=== PATIENT | female | born 1960 | race Caucasian/White ===

== ENCOUNTER 2017-04-15 00:36 | Inpatient (IN) | payer MEDICAID ==
--- NOTE | 2017-04-15 00:56 | ED Physician Chart ---
ED Chief Complaint/HPI - Patient Information Date Seen:: 04/15/17 Time Seen:: 00:40 Chief Complaint:: chest pain History of Present Illness:: patient awoke from sleep 1 hr ago with sharp pleuritic left sided chest pain with radiation down her left arm. Pain 10 on a scale of 1 to 10. For the last month has been getting episodes of similar pain which last only a few seconds. Episodes would occur spontaneously without precipitating or relieving factors. No recent URI or cough. ED Review of Systems - Review of Systems General/Constitutional: No fever, No chills Skin: No skin lesions Head: No headache Eyes: No loss of vision ENT: No earache Neck: No neck pain, No swelling Cardio Vascular: Chest pain Pulmonary: No SOB GI: No nausea, No vomiting G/U: No dysuria Musculoskeletal: No bone or joint pain, No muscle pain Endocrine: No polydipsia Psychiatric: No prior psych history, No depression, No anxiety Hematopoietic: No bruising, No lymphadenopathy Allergic/Immuno: No urticaria Neurological: No syncope ED Past Medical History - Past Medical History Past Medical History: DM Family History: Heart disease, Diabetes [place] Social History: Smoker, No Alcohol, Other (smokes 4 cigarets per day) Surgical History: None ED Labs/Radiology/EKG Results - Radiology Results Results: CXR: right basilar infiltrate - EKG Interpretations Rate & Rhythm: NSR with a rate of 55 [place]: normal Comments:: inverted T waves anterior leads; [facility] ED Assessment - Assessment General Assessment: Patient when asked again said that she has slight cough 3 days ago. It is very difficult to diagnose pneumonia without a significant cough but patient's chest pain does not appear cardiac in origin. Patient had 3 EKGs all of which was the same and showed inverted T waves in anterior leads. ED Septic Shock - . Is Septic Shock (SBP<90, OR Lactate>4 mmol\L) present?: No ED Reassessment (Disposition) - Reassessment Reassessment Condition:: Improved - Diagnosis Diagnosis:: Chest pain; pneumonia; hypokalemia - Patient Disposition Admitted to:: Telemetry Spoke to:: Pal Patel Admitting Medical Physician:: Pal Patel Condition at Disposition:: Stable, Improved
[2017-04-15 01:03] LABS: HEMATOCRIT 39.1 % (41.0-60); HEMOGLOBIN 13.1 gm/dL (12-16); MEAN CELL VOLUME 90.6 fl (81-100); MEAN CORPUSCULAR HEMOGLOBIN 30.2 pg (27.0-31.0); MEAN CORPUSCULAR HGB CONC 33.4 pg (28.0-36.0); PLATELET COUNT 300 Th/cmm (150-400); RED BLOOD COUNT 4.32 Mil/cmm (3.80-5.10); RED CELL DISTRIBUTION WIDTH 12.7 % (11.5-20.0)
[2017-04-15] MEDS ORDERED: Sodium Chloride 0.9% 500 ML IV ONE ×2 (01:14→01:41)
[2017-04-15] MEDS ORDERED: cefTRIAXone 1 GM in Sodium Chloride 0.9% 50 ML IV ONE (01:22)
[2017-04-15 01:28] LABS: ANION GAP 8.9 (7.0-16.0); BUN - UREA NITROGEN 9 mg/dL (7-25); CALCIUM SERUM 9.4 mg/dL (8.6-10.3); CARBON DIOXIDE 27.2 mEq/L (21.0-31.0); CHLORIDE 102 mEq/L (98-107); CREATININE - SERUM 0.5 mg/dL (0.6-1.2); GLUCOSE 139 mg/dL (70-105); MAGNESIUM 2.4 mg/dL (1.9-2.7); POTASSIUM SERUM 3.1 mEq/L (3.5-5.1); SODIUM SERUM 135 mEq/L (136-145)
[2017-04-15 01:32] LABS: WHITE BLOOD COUNT 13.8 Th/cmm (4.8-10.8)
[2017-04-15] MEDS ORDERED: Potassium Chloride 20 mEq ER Tab PO ONE ×2 (01:34→01:44)
[2017-04-15] MEDS ORDERED: HYDROmorphone 1 mg/mL 1mL Syr ONE (02:15)
[2017-04-15] MEDS: HYDROmorphone 1 mg/mL 1mL Syr IVP STA ×2 (02:16→07:22)
[2017-04-15 02:36] LABS: TOTAL CELLS COUNTED 100
[2017-04-15 02:37] LABS: BAND NEUTROPHILE 0 % (0-10); NEUTROPHILS 30 % (40-80)
[2017-04-15 02:38] LABS: BASOPHIL 0 % (0-3); EOSINOPHIL 5 % (0-5); PLATELET ESTIMATE ADEQUATE (NORMAL); PLATELET MORPHOLOGY PLATELET CLUMPS SEEN (NORMAL)
[2017-04-15] MEDS ORDERED: Pneumococcal Vaccine 0.5 mL Vial IM ONE (04:32)
[2017-04-15] MEDS ORDERED: HYDROmorphone 2 mg/mL 1mL Vial IVP ONE (07:17)
--- NOTE | 2017-04-15 07:18 | Diagnostic Imaging Report ---
Exam: Portable summation of chest. HISTORY: Chest pain. Findings: Portable upright examination of the chest at 0118 hours reviewed, no prior studies available comparison. The study demonstrates ill-defined mild peribronchial infiltrate in the right base. The costophrenic angles are clear. Bony thorax intact. Mediastinal structures midline. There is evidence for ill-defined the nodularity in the area right apex with of this represent a skin mole is not clear. Clinical correlation follow-up dictation recommended as well as comparison no studies. The for studies available for comparison CT examination of chest might be helpful. Bony thorax is intact. IMPRESSION: Right basilar mild peribronchial infiltrate. Ill-defined 8 mm density overlying the right apex. This might represent a skin mole or intraparenchymal lesion. CT examination may be helpful.
[2017-04-15] MEDS: Aspirin 81mg Chewable Tab PO SCH (09:24)
[2017-04-15] MEDS: Levofloxacin 750mg/150mL 750 MG/150 ML BAG IV SCH (09:24)
--- NOTE | 2017-04-15 10:49 | History & Physical ---
ADMIT DATE: CHIEF COMPLAINT: Chest pain. HISTORY OF PRESENT ILLNESS: A 57-year-old [place] female with long-standing history of diabetes mellitus and smoking with family history of coronary artery disease, presented to Emergency Room for left-sided chest pain, which started approximately one month ago and started to build up over the last 12 hours, was unbearable, so she brought herself to the Emergency Room. The patient was seen by Emergency Room MD and subsequently admitted to the hospital for further treatment. PAST MEDICAL HISTORY: Remarkable for: 1. Diabetes. 2. Hypertension. MEDICATIONS AT HOME: Insulin. ALLERGIES: The patient is not allergic to medications. SOCIAL HISTORY: She lives in [facility]. She has history of smoking cigarette. No alcohol or drug use. FAMILY MEDICAL HISTORY: Remarkable for diabetes, hypertension, hyperlipidemia, coronary artery disease. REVIEW OF SYSTEMS: The patient having intermittent pain on the left side of the chest, which she 0.1 one area associated with diaphoresis as well as palpitation and shortness of breath. She also has intermittent cough. She denies any fever or chills. The patient denies any headache, blurred vision, double vision, dysphagia, odynophagia. No history of any nausea, vomiting, hematemesis, hematuria, hematochezia, melena. No seizure or syncopal episode. PHYSICAL EXAMINATION: GENERAL: The patient is alert, awake, oriented, lying in the bed without any acute distress. VITAL SIGNS: Temperature 98, pulse is 55, respiratory rate 18, blood pressure 118/65. HEENT: Normocephalic, atraumatic. Extraocular muscles are intact. Tongue was pink and coated. Poor dentition noted. No oral lesion, no exudate. No sinus tenderness. External auditory data membranes are well visualized. NECK: Supple, no JVD, no hepatojugular reflex. No lymphadenopathy, thyromegaly or carotid bruit. HEART: Both heart sounds are regular. No S3, no S4. CHEST: Lung equal in expansion with no expiratory wheezing. ABDOMEN: Significant tenderness to the left second congestion area noted. Abdomen was soft. No guarding, no rigidity. Bowel sounds are present. No palpable mass. EXTREMITIES: No edema, no cyanosis, no clubbing. Pulses are +2. No calf tenderness noted. NEUROLOGIC: Alert, awake, oriented, following commands. No gross neuro deficits noted. AVAILABLE DIAGNOSTIC DATA: Performed in the Emergency Room has been reviewed. CLINICAL IMPRESSION: 1. Chest pain, most likely from coronary disease. 2. Right lower lobe infiltrate with lower lobe infiltrate and local infiltrate with longstanding history of smoking, needs further evaluation. 3. Diabetes. 4. Smoking. 5. History of hypertension, currently remained stable. PLAN: Admit this patient to medical floor. Admitted this patient to telemetry unit, the patient was admitted by me last night. The patient to have as noncontrast CT scan of the chest. The patient will be placed on Indocin along with Protonix for her costochondritis. Cardiology consultation has been requested at this time, I will also get a 2D echocardiogram since the patient has a history of hypertension. Cardiac enzymes have been requested and we will complete the cardiac enzymes as well. Appropriate empirically Levaquin will be started as well. We will replace patient's potassium and will follow consult recommendations. Care plan has been reviewed and discussed with staff. JOB# [id number]
[2017-04-15] MEDS ORDERED: INSULIN ASPART SLIDING SCALE 100 UNITS/ML UNIT SUBQ SCH (11:30)
[2017-04-15] MEDS ORDERED: INSULIN HUMAN REGULAR 100 UNITS/ML UNIT SUBQ ONE (12:56)
[2017-04-15] MEDS: INSULIN ASPART SLIDING SCALE 100 UNITS/ML UNIT SUBQ SCH ×3 (13:08→21:12)
[2017-04-15] MEDS: NITROGLYCERIN OINT 2% 1 INCH PACKET TP SCH ×2 (13:15→18:14)
[2017-04-15] MEDS: Pantoprazole 40 mg EC Tab PO SCH (13:16)
--- NOTE | 2017-04-15 15:33 | Diagnostic Imaging Report ---
CT Chest without IV contrast HISTORY: Shortness of breath COMPARISON: Chest x-ray on 06/15/2016 at 1:16 AM. Technique: Axial images were obtained from the base of the neck to the upper abdomen without IV contrast. Reconstructions were made. Total DLP 310, CTD I 7.8 Findings: Evaluation of mediastinum is limited due to lack of IV contrast. Calcified right paratracheal lymph node is noted measuring 1.5 x 0.7 cm. No evidence of mediastinal lymphadenopathy. Mild atherosclerotic vascular disease is noted. Heart size is normal. No evidence of any aortic aneurysm. No evidence of a pericardial effusion. The lung curtis demonstrate hypoventilatory atelectatic changes. No focal consolidation or pleural effusions. The upper abdomen demonstrates a distended stomach. The osseous structures demonstrate no acute abnormalities. Mild degenerative changes of the spine are noted. IMPRESSION: Mild hypoventilatory and atelectatic changes. No focal consolidation or pleural effusions Mild atherosclerotic vascular disease. Evidence of prior granulomatous disease of the mediastinum.
[2017-04-15] MEDS ORDERED: Enoxaparin 40 mg/0.4 mL 0.4mL Syr SUBQ SCH (19:15)
[2017-04-15] MEDS ORDERED: Enoxaparin 30 mg/0.3 mL 0.3mL Syr SUBQ SCH (19:15)
[2017-04-15] MEDS: Enoxaparin 80 mg/0.8 mL 0.8mL Syr SUBQ SCH (20:16)
[2017-04-15] MEDS ORDERED: Lovenox 1 mg/kg Q12H 1 Each Miscellaneous SUBQ SCH (21:00)
[2017-04-16] MEDS: NITROGLYCERIN OINT 2% 1 INCH PACKET TP SCH ×4 (01:07→18:02)
[2017-04-16 05:44] LABS: % BASOPHILS 0.3 % (0.0-2.0); % EOSINOPHILS 3.8 % (0.0-5.0); % MONOCYTES 5.8 % (2.0-10.0); % NEUTROPHILS 45.1 % (40.0-80.0); HEMATOCRIT 38.3 % (41.0-60); HEMOGLOBIN 12.9 gm/dL (12-16); MEAN CELL VOLUME 91.1 fl (81-100); MEAN CORPUSCULAR HEMOGLOBIN 30.5 pg (27.0-31.0); MEAN CORPUSCULAR HGB CONC 33.5 pg (28.0-36.0); MEAN PLATELET VOLUME 7.8 fl; NEUTROPHILE ABSOLUTE 4.1 Th/cmm (1.8-8.0); RED BLOOD COUNT 4.21 Mil/cmm (3.80-5.10); RED CELL DISTRIBUTION WIDTH 12.6 % (11.5-20.0)
[2017-04-16 06:03] LABS: ANION GAP 8.9 (7.0-16.0); BUN - UREA NITROGEN 9 mg/dL (7-25); CALCIUM SERUM 9.1 mg/dL (8.6-10.3); CARBON DIOXIDE 25.5 mEq/L (21.0-31.0); CHLORIDE 102 mEq/L (98-107); CREATININE - SERUM 0.5 mg/dL (0.6-1.2); GLUCOSE 309 mg/dL (70-105); POTASSIUM SERUM 4.4 mEq/L (3.5-5.1); SODIUM SERUM 132 mEq/L (136-145)
[2017-04-16 06:18] LABS: PLATELET COUNT 239 Th/cmm (150-400); WHITE BLOOD COUNT 9.1 Th/cmm (4.8-10.8)
[2017-04-16] MEDS: INSULIN ASPART SLIDING SCALE 100 UNITS/ML UNIT SUBQ SCH ×3 (06:31→17:54)
[2017-04-16] MEDS: Pantoprazole 40 mg EC Tab PO SCH (06:32)
[2017-04-16] MEDS: Aspirin 81mg Chewable Tab PO SCH (08:09)
[2017-04-16] MEDS: Enoxaparin 80 mg/0.8 mL 0.8mL Syr SUBQ SCH (08:10)
[2017-04-16] MEDS: Levofloxacin 750mg/150mL 750 MG/150 ML BAG IV SCH (08:15)
[2017-04-16] MEDS ORDERED: Morphine Sulfate 2 mg/mL 1mL Syr IVP PRN ×2 (15:34→15:38)
[2017-04-16] MEDS ORDERED: Morphine Sulfate 4 mg/mL 1mL Syr IVP PRN (15:50)
--- NOTE | 2017-04-17 20:10 | Consultation ---
DATE OF CONSULTATION: 04/16/[address] Patel. This 57-year-old female patient came to the Emergency Room complaining of chest pain for a month. The patient has a history of diabetes, smoking and a family history of coronary artery disease. PAST MEDICAL HISTORY: Diabetes, hypertension, insulin dependent. FAMILY HISTORY: Unremarkable. SOCIAL HISTORY: The patient has a history of smoking cigarettes, no history of alcohol abuse. ALLERGIES: None. PHYSICAL EXAMINATION: VITAL SIGNS: Blood pressure 130/80, pulse 70, respirations 20. HEAD: Normocephalic. No lumps or bumps. EYES: Pupils equal, reactive to light. Fundi show AV nicking, sclerae white, conjunctivae pink. NECK: Carotid 2+. Normal upstroke. JVD flat. Thyroid not palpable. Lymph nodes not palpable. CHEST: Shows increased AP diameter. No kyphosis, scoliosis. LUNGS: Bilateral bronchovesicular breath sounds. HEART: PMI fifth intercostal space with lateral to midclavicular line. S1, S2. No S3, S4, systolic murmur, grade 2/6, lower left sternal border without radiation. ABDOMEN: Soft. Liver, spleen not palpable. No organomegaly. Bowel sounds are active. NEUROLOGIC: Unremarkable. EXTREMITIES: Peripheral pulses 2+. No pedal edema. CLINICAL IMPRESSION: Acute myocardial infarction with elevated troponin level, diabetes mellitus type 2, nicotine dependence, hypertension, hyperlipidemia. PLAN: Admit the patient. We will start the patient on Lovenox, beta anette, get lipid profile, echocardiogram and transfer the patient to acute care hospital where cardiac cath can be performed. JOB# [id number]
--- NOTE | 2017-04-17 22:09 | Discharge Summary ---
DATE OF DISCHARGE: 04/16/2017 PRINCIPAL DIAGNOSES: 1. Acute non-Q wave myocardial infarction. 2. Diabetes mellitus. 3. Hypertension. 4. Smoking. 5. Degenerative joint disease. 6. Granulomatous disease of the mediastinum by CT scan of the chest. BRIEF STATEMENT FOR THE REASON FOR ADMISSION: A 57-year-old female presented to Emergency Room for intermittent chest pain for the last one month. The patient was smoker and diabetic. The patient was advised to be admitted for further treatment. HOSPITAL COURSE: The patient was admitted to telemetry unit. Oxygen, aspirin, nitrates were given. Three sets of cardiac enzymes basically ruled into acute myocardial infarction. The patient was seen by oven tender bagels and medical therapy was initiated, symptomatic management was provided. According to the oven tender bagels, the patient needed to have coronary angiogram. Hospital made an arrangement to transfer this patient to [facility]. Once the patient was accepted, the patient was transferred on 04/16/2017 in stable condition with patient followed by myself and oven tender bagels. JOB# [id number]
--- NOTE | 2017-04-19 04:54 | Cardiology ---
04/16/2017 PATIENT OF: Pal Patel M.D. M-MODE ECHOCARDIOGRAM: Mitral valve, anterior leaflet of mitral valve shows normal excursion, EF velocity. Posterior leaflet of the mitral valve shows normal excursion. Left ventricular posterior wall shows increased thickness, normal excursion. Interventricular septum shows increased thickness, normal excursion. Hypertrophy of the left ventricle, ejection fraction 50%. Left atrium normal. Aortic root shows normal dimension. Normal excursion of aortic leaflets. CONCLUSION: Hypertrophy of the left ventricle, ejection fraction 50%. 2D ECHO: Long-axis view showed normal-sized left ventricle with hypertrophy of the left ventricle. Left atrium normal. Aortic root shows normal dimension, normal excursion of aortic leaflets. Short-axis view of mitral valve normal. Short-axis view of aortic valve normal. Apical 4-chamber view showed normal-sized left ventricle, left atrium, right ventricle, right atrium, tricuspid and mitral valves, ejection fraction of 50%. CONCLUSION: Normal hypertrophy of the left ventricle, ejection fraction 50%. Doppler study showed trace mitral regurgitation and tricuspid regurgitation. [facility]# [id number]
== END 2017-04-16 19:48 | disposition short-term general hospital (02) | DRG 190 ==
LOC: ER 00:36 → TELE 02:00 → ICU 04-16 15:15
PROVIDERS: ADMIT Internal Medicine; ATTEND Internal Medicine
DX: I21.4 Non-ST elevation (NSTEMI) myocardial infarction (principal); J18.9 Pneumonia, unspecified organism; E11.9 Type 2 diabetes mellitus without complications; I25.10 Atherosclerotic heart disease of native coronary artery without angina pectoris; F17.210 Nicotine dependence, cigarettes, uncomplicated; I10 Essential (primary) hypertension; E87.6 Hypokalemia; M94.0 Chondrocostal junction syndrome [Tietze]; E78.5 Hyperlipidemia, unspecified; D71 Functional disorders of polymorphonuclear neutrophils; Z82.49 Family history of ischemic heart disease and other diseases of the circulatory system; Z83.3 Family history of diabetes mellitus; Z79.4 Long term (current) use of insulin
CPT/HCPCS: 36415-UA; 71010-TC; 71250-TC; 80048-TC; 82948-90; 83036-90; 83605; 83735-TC; 84484-TC; 85007-TC; 85025-TC; 85027-TC; 93005; J0696; J1170; J1650; J1815; J1956; J7040; Z7610